=== PATIENT | female | born 1990 | race Caucasian/White ===

== ENCOUNTER 2017-07-29 12:44 | Emergency (ER) | payer BC ==
[2017-07-29 13:34] LABS: Hematocrit 36.2 % (37.0-47.0); Hemoglobin 12.4 gm/dL (12.5-16.0); Mean Cell Volume 93.5 fl (78-100); Mean Corpuscular Hgb Conc 34.3 g/dl (32-36); Mean Platelet Volume 9.7 fl (6.0-9.5); Neutrophil # 4.4 K/mm3 (1.3-6.0); Neutrophil % 60.5 % (42-75.0); Platelet Count 320 K/mm3 (150-450); Red Blood Count 3.87 M/mm3 (4.2-5.4); Red Cell Distribution Width 11.8 % (11.5-14.0); White Blood Count 7.3 K/mm3 (4.0-10.5)
[2017-07-29 13:53] LABS: Albumin * 4.2 gm/dl (3.4-5.0); Anion Gap 13.3 mmol/L (6.8-13.8); BUN/Creatinine Ratio 12.1 (9.0-21.6); Bilirubin, Total 0.8 mg/dL (0.0-1.1); Calcium * 9.5 mg/dL (7.9-10.9); Carbon Dioxide 26.8 mmol/L (24-32.6); Potassium 3.1 mmol/L (3.4-4.6); Total Protein 8.2 gm/dL (6.2-8.2)
--- NOTE | 2017-07-29 14:04 | ERNOTE ---
Chest Pain/Cardiac HPI Chief Complaint: Chest Pain Time Seen by Provider: 07/29/17 13:11 Source: patient Exam Limitations: no limitations Immunizations: IMMUNIZATION HX Immunizations Up to Date Yes History of Influenza Vaccine Yes Hx Pneumococcal Vaccination No Allergies/Adverse Reactions: Allergies No Known Allergies Allergy (Unverified 07/29/17 12:57) Home Medications: HOME MEDICATIONS Alprazolam [Xanax] 0.25 mg OP PRN PRN 07/29/17 [Last Taken Unknown] Cetirizine HCl [Zyrtec] 10 mg PO DAILY 07/29/17 [Last Taken Unknown] Citalopram Hydrobromide [Citalopram HBr] 40 mg PO DAILY 07/29/17 [Last Taken Unknown] Ibuprofen [Motrin] 600 mg PO TID PRN #15 tab 07/29/17 [Last Taken Unknown] Narrative: pt has a history of anxiety and started feeling chest pain this am approx 6 hours prior to presentation. then she felt some left shoulder pain and became nervous and took a Xanax however pain did not get better. She came in to ED and now her pain is in mid epigastric area and rising into the substernal area and about a 4/10 Review of Systems - Review of Systems Constitutional: Present: no symptoms reported EYE: Present: no symptoms reported ENT: Present: no symptoms reported Respiratory: Present: no symptoms reported Cardiology: Present: See HPI Gastrointestinal/Abdominal: Present: no symptoms reported Genitourinary: Present: no symptoms reported Musculoskeletal: Present: no symptoms reported - Patient's Past Medical History Patient History - Medical: Anxiety Patient History - Cardiac/Respiratory: No pertinent hx Patient History - Cancer: No Hx of Cancer Patient History - Surgical Procedures: Other, ENT Patient History - Other: None LMP (females 10-50): last week - Social History Living Situations: significant other Psych History: Hx of Anxiety Smoking Status: Current every day smoker Have you smoked in the past 12 months: Yes Alcohol Use: none Drug Use: none - Immunizations Immunizations Up to Date: Yes Hx Pneumococcal Vaccination: No History of Influenza Vaccine: Yes Physical Exam - Physical Exam General Appearance: Present: wd/wn, alert, no apparent distress Head Exam: Present: normal inspection Ears, Nose, Throat: Present: normal ENT inspection Neck: Present: normal inspection, nontender, supple Respiratory: Present: no respiratory distress, normal breath sounds, no accessory muscle use, chest nontender, lungs clear Cardiovascular/Chest: Present: regular rate, rhythm, no murmur, normal peripheral pulses Gastrointestinal/Abdominal: Present: normal bowel sounds, nontender Extremity Exam: Present: normal inspection ED Progress - Results and Orders Patient's Lab Results:: I have reviewed the patient's lab results. - Vital Signs Patient's Vital Signs:: I have reviewed the patient's vital signs. Vital Signs: Vital Signs 07/29/17 12:52 Temperature 37.3 C Pulse Rate 85 Respiratory 14 Rate Blood Pressure 124/83 O2 Sat by Pulse 98 Oximetry - EKG EKG: NSR - X-Ray X-Ray #1 X-Ray: chest - Progress/Reassessment Chief Complaint: Chest Pain Plan - Plan Plan: Patient's EKG while she is having pain is normal sinus rhythm on examination at one time with pressure on her sternum patient states I am reproducing the pain and the next time she states that I am not. Chest x-ray is completely normal and troponin is completely negative. This examiner doubts that this patient's chest pain is due to cardiac etiology. Departure Clinical Impression: Chest pain Qualifiers: Chest pain type: unspecified Qualified Code(s): R07.9 - Chest pain, unspecified - Departure Disposition: Home self-care Condition: Good Instructions: Chest Wall Pain, [id number] Referrals: Lily Mckeon DO [Primary Care Provider] - Prescriptions: Ibuprofen [Motrin] 600 mg PO TID PRN #15 tab PRN Reason: Pain
[2017-07-29 15:09] VITALS: BP 116/67
== END 2017-07-29 14:05 | disposition home or self-care (01) ==
LOC: ER 12:44
DX: R07.9 Chest pain, unspecified (principal); F41.9 Anxiety disorder, unspecified; F17.200 Nicotine dependence, unspecified, uncomplicated